=== PATIENT | male | born 2000 | race Two or more races ===

== ENCOUNTER 2023-08-14 17:34 | Emergency (ER) | payer OTHER ==
[~2023-08-14] VITALS: Ht 162.6 cm; Wt 59.7 kg
[2023-08-14 18:21] LABS: Urine Bacteria None Seen /hpf (None Seen)
[2023-08-14 18:39] LABS: Urine Blood Negative /uL (Negative); Urine Clarity Clear (Clear); Urine Color Yellow (Yellow); Urine Mucus FEW (None Seen); Urine Protein, UAD Negative (Negative); Urine Specific Gravity 1.026 (1.001-1.035); Urine Urobilinogen Normal (Negative); Urine WBC <1 /hpf (0 - 3)
[2023-08-14 18:55] LABS: Basophils # (auto) 0.1 10 ^3/uL (0-0.2); Basophils % (auto) 0.9 % (0.0-2.0); Eosinophils # (auto) 0.2 10 ^3/uL (0-0.8); Hematocrit 49.7 % (41.0-53.0); Hemoglobin 16.9 g/dL (13.5-17.5); Lymphocytes # (auto) 2.9 10 ^3/uL (0.4-5.4); Lymphocytes % (auto) 25.2 % (10.0-50.0); Mean Corpuscular Hemoglobin 27.8 pg (28.0-32.0); Mean Corpuscular Hgb Conc. 33.9 g/dL (32.0-36.0); Mean Corpuscular Volume 81.9 fL (80.0-100.0); Monocytes # (auto) 0.6 10 ^3/uL (0-1.3); Monocytes % (auto) 5.2 % (0.0-12.0); Neutrophils # (auto) 7.6 10 ^3/uL (1.6-8.6); Neutrophils % (auto) 66.7 % (37.0-80.0); Nucleated Red Blood Cells % 0.1 %; Red Blood Cells 6.07 10^6/uL (4.5-5.90); White Blood Cell 11.3 10^3/uL (4.4-10.8)
[2023-08-14 19:08] LABS: Alanine Aminotransferase 16 U/L (7-40); Albumin 4.8 g/dL (3.2-4.8); Alkaline Phosphatase 45 U/L (46-116); Anion Gap 7 (5-15); Aspartate Aminotransferase 9 U/L (13-40); BUN/Creatinine Ratio 10.1 (10.0-20.0); Bilirubin, Total 1.3 mg/dL (0.2-1.0); Blood Urea Nitrogen 9 mg/dL (9-23); Carbon Dioxide 25 mmol/L (20-30); Chloride 107 mmol/L (98-107); Glucose 87 mg/dL (74-106); Lipase 49 U/L (12-53); Potassium 3.7 mmol/L (3.5-5.1); Sodium 139 mmol/L (136-145); Total Protein 7.9 g/dL (5.7-8.2)
[2023-08-14] MEDS: IOHEXOL 300 MG/ML 100ML BOTTLE IJ ONE (19:09)
[2023-08-14] MEDS ORDERED: AUG875T PO (20:31)
[2023-08-14] MEDS ORDERED: ZOFR4T PO (20:31)
[2023-08-14] MEDS ORDERED: DICY10CA PO (20:31)
[2023-08-14] MEDS: ONDANSETRON HCL 4 MG/2 ML VIAL IV ONE (23:05)
[2023-08-14] MEDS: SODIUM CHLORIDE 0.9% 1,000 ML IV ONE (23:05)
[2023-08-14] MEDS: DICYCLOMINE HCL (10MG/ML) 2 ML AMPULE IM ONE (23:05)
[2023-08-14 23:20] VITALS: BP 129/44; PULSE 100; RESP 14; TEMP 98.1; O2SAT 99
== END 2023-08-14 23:45 | disposition home or self-care (01) ==
LOC: ER 17:34
DX: K52.9 Noninfective gastroenteritis and colitis, unspecified (principal); Z79.899 Other long term (current) drug therapy
CPT/HCPCS: 36415; 74178; 80053; 81001; 83690; 85025; 96361; 96372; 96374; 99285; J0500; J2405; J7030; Q9967; 96360

== ENCOUNTER 2023-09-17 11:31 | Emergency (ER) | payer OTHER ==
[~2023-09-17] VITALS: Ht 160 cm; Wt 60.7 kg
[~2023-09-17 11:31] MED LIST: AUG875T PO; DICY10CA PO; ZOFR4T PO
[2023-09-17 11:50] LABS: Basophils # (auto) 0.1 10 ^3/uL (0-0.2); Basophils % (auto) 0.9 % (0.0-2.0); Eosinophils # (auto) 0.2 10 ^3/uL (0-0.8); Eosinophils % (auto) 2.4 % (0.0-7.0); Hematocrit 46.7 % (41.0-53.0); Hemoglobin 16.6 g/dL (13.5-17.5); Lymphocytes # (auto) 2.2 10 ^3/uL (0.4-5.4); Lymphocytes % (auto) 23.7 % (10.0-50.0); Mean Corpuscular Hgb Conc. 35.4 g/dL (32.0-36.0); Mean Corpuscular Volume 81.7 fL (80.0-100.0); Monocytes # (auto) 0.4 10 ^3/uL (0-1.3); Monocytes % (auto) 4.8 % (0.0-12.0); Neutrophils # (auto) 6.2 10 ^3/uL (1.6-8.6); Neutrophils % (auto) 68.2 % (37.0-80.0); Nucleated Red Blood Cells % 0.2 %; Red Blood Cells 5.71 10^6/uL (4.5-5.90); Red Cell Distribution Width 12.9 % (11.8-14.3); White Blood Cell 9.1 10^3/uL (4.4-10.8)
[2023-09-17 12:06] LABS: Alanine Aminotransferase 18 U/L (7-40); Albumin 4.8 g/dL (3.2-4.8); Alkaline Phosphatase 44 U/L (46-116); Anion Gap 5 (5-15); Aspartate Aminotransferase 10 U/L (13-40); BUN/Creatinine Ratio 9.5 (10.0-20.0); Bilirubin, Total 1.3 mg/dL (0.2-1.0); Blood Urea Nitrogen 9 mg/dL (9-23); Carbon Dioxide 29 mmol/L (20-30); Chloride 106 mmol/L (98-107); Glucose 129 mg/dL (74-106); Potassium 4.2 mmol/L (3.5-5.1); Sodium 140 mmol/L (136-145)
[2023-09-17 12:07] LABS: Total Protein 7.4 g/dL (5.7-8.2)
[2023-09-17 13:34] VITALS: PULSE 71; RESP 16; O2SAT 98
[2023-09-17 15:07] LABS: Urine Bacteria None Seen /hpf (None Seen)
[2023-09-17 15:36] LABS: Urine Blood Negative /uL (Negative); Urine Clarity Clear (Clear); Urine Color Yellow (Yellow); Urine Protein, UAD Negative (Negative); Urine Specific Gravity 1.024 (1.001-1.035); Urine Urobilinogen Normal (Negative); Urine WBC <1 /hpf (0 - 3)
[2023-09-17] MEDS ORDERED: PANT40TA2 PO (16:22)
[2023-09-17 17:29] VITALS: BP 118/70; PULSE 89; RESP 16; TEMP 98.2; O2SAT 95
== END 2023-09-17 17:32 | disposition home or self-care (01) ==
LOC: ER 11:35
DX: K21.9 Gastro-esophageal reflux disease without esophagitis (principal); R07.89 Other chest pain; Z79.899 Other long term (current) drug therapy
CPT/HCPCS: 36415; 71045; 74176; 80053; 81001; 84484; 85025; 93005